=== PATIENT | female | born 1930 | race Caucasian/White ===

== ENCOUNTER 2018-04-18 03:46 | Observation (INO) | payer OTHER ==
[~2018-04-18] VITALS: Ht 170.2 cm; Wt 97.4 kg
[~2018-04-18 03:46] MED LIST: ASPIRIN325 PO; BENTYL 20 MG TA20 M1 PO; CEFTIN500 MG PO; CENTRUM SILVER1 EAC4 PO; CIPRO250 M1 PO; CIPRO500 M1 PO; CIPRO500 MG PO; CITRUCEL479 GM PO; COLESTIPOL HCL1 G1 PO; DILTIAZEM ER240 MG PO; FLAGYL500 MG PO; HYDROCODONE-AP1 EAC6 PO; LASIX 40 MG TAB40 M1 PO; LEVAQUIN 500 M500 MG PO; LEVAQUIN 750 M750 MG PO; LIDOPATCH1 EACH TOP; LISINOPRIL5 MG PO; MACROBID 100 M100 M1 PO; MAGNESIUM OXID400 MG PO; MIRALAX17 GM PO; MOBIC7.5 MG PO; NITROFURANTOIN100 MG PO; ONE-A-DAY WOMENS PO; PHENAZOPYRIDIN200 M2 PO; POTASSIUM GLUC500 MG PO; PREMARIN30 GM VAG; PYRIDIUM200 MG PO; Potassium Gluconate PO; SOTALOL120 MG PO; TRANSDERM-SCOP1 EACH TRANSDERM; VANCO1GM PO; VENTOLIN HFA 1818 GM INH; XANAX 0.5 MG0.5 MG PO
[2018-04-18 03:49] VITALS: BP 128/86
[2018-04-18 04:19] LABS: ABSOLUTE BASOPHILS 0.1 thou/uL (0.0-0.2); ABSOLUTE EOSINOPHILS 0.3 thou/uL (0.0-0.7); ABSOLUTE LYMPHOCYTES 2.2 thou/uL (0.8-5.3); ABSOLUTE NEUTROPHILS 14.2 thou/uL (1.6-8.1); BASOPHILS 0.3 %; EOSINOPHILS 1.9 %; HEMATOCRIT 50.6 % (37.0-47.0); HEMOGLOBIN 16.8 gm/dL (12.0-15.0); LYMPHOCYTES 12.6 %; MCH 32.2 pg (26.0-34.0); MCHC 33.2 g/dL (28.0-37.0); MONOCYTES 5.6 %; MPV 8.4 fl. (7.2-11.1); NUCLEATED RBCS 0 /100WBC; PLATELET COUNT* 238 thou/uL (150-400); POLYS 79.6 %; RBC 5.21 mil/uL (4.20-5.00); RDW-CV 13.1 % (10.5-14.5); WBC 17.8 thou/uL (4.0-11.0)
[2018-04-18 04:36] LABS: ANION GAP 11 mmol/L (7-16); BUN 30 mg/dL (7-18); CALCIUM 9.8 mg/dL (8.5-10.1); CHLORIDE 105 mmol/L (98-107); CO2 30 mmol/L (21-32); CREATININE 1.4 mg/dL (0.6-1.3); GLUCOSE 126 mg/dL (70-99); POTASSIUM 3.4 mmol/L (3.5-5.1); SODIUM 146 mmol/L (136-145)
[2018-04-18 04:43] LABS: ALBUMIN 3.4 g/dL (3.4-5.0); ALKALINE PHOSPHATASE 101 U/L (46-116); LIPASE 101 U/L (73-393); SGOT 15 U/L (15-37); SGPT 18 U/L (30-65); TOTAL BILIRUBIN 0.6 mg/dL (<0.1-1.0); TOTAL PROTEIN 7.3 g/dL (6.4-8.2); TROPONIN-I LEVEL <0.06 ng/mL (<0.06)
[2018-04-18 05:00] LABS: URINE BILIRUBIN NEGATIVE (Negative); URINE BLOOD TRACE (Negative); URINE CLARITY CLEAR; URINE COLOR YELLOW; URINE GLUCOSE-RANDOM NEGATIVE (Negative); URINE KETONES NEGATIVE (Negative); URINE LEUKOCYTES-REFLEX NEGATIVE (Negative); URINE NITRITE-REFLEX NEGATIVE (Negative); URINE PROTEIN NEGATIVE (Negative); URINE SPECIFIC GRAVITY 1.015 (1.005-1.030); URINE UROBILINOGEN 0.2 E.U./dl (0.2-1.0)
[2018-04-18 08:02] VITALS: BP 113/56
--- NOTE | 2018-04-18 15:28 | EKG ---
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: LUKE : 1930 Requested By: Melly Montiel Order Number: [id number] Reading MD: Hi Nicholson Measurements Intervals [address] Rate: 71 P: [place]: 210 QRS: 87 QRSD: 114 T: 25 QT: 488 QTc: 531 Interpretive Statements Atrial-paced rhythm Low voltage, precordial leads Prolonged QT interval Compared to ECG 02/12/2017 03:51:13 Low QRS voltage now present Prolonged QT interval now present Ventricular premature complex(es) no longer present Intraventricular conduction delay no longer present Electronically Signed On 04-18-2018 15:28:30 GASOLINE ATTENDANT by Hi Nicholson [email or web address] <ELECTRONICALLY SIGNED> By: Hi Nicholson MD, FACC 04/18/18 1528 0353 [id number] Hi Nicholson MD, FACC /EPI
[2018-04-18 16:04] VITALS: BP 129/72
[2018-04-18 19:40] VITALS: BP 132/63
[2018-04-18 22:49] LABS: AMP/METHAMP Negative (Negative); BARBITURATES Negative (Negative); BENZODIAZEPINES Negative (Negative); COCAINE Negative (Negative); METHADONE Negative (Negative); OPIATES Negative (Negative); PCP Negative (Negative); THC Negative (Negative)
[2018-04-19 04:01] LABS: HEMATOCRIT 44.5 % (37.0-47.0); MCH 31.9 pg (26.0-34.0); MCHC 32.6 g/dL (28.0-37.0); MPV 8.5 fl. (7.2-11.1); RBC 4.54 mil/uL (4.20-5.00); RDW-CV 13.7 % (10.5-14.5); WBC 9.3 thou/uL (4.0-11.0)
[2018-04-19 04:05] LABS: HEMOGLOBIN 14.5 gm/dL (12.0-15.0)
[2018-04-19 04:11] LABS: CALCIUM 8.4 mg/dL (8.5-10.1); CREATININE 1.2 mg/dL (0.6-1.3); POTASSIUM 3.7 mmol/L (3.5-5.1)
[2018-04-19 08:15] VITALS: BP 138/70
[2018-04-19 13:13] VITALS: BP 132/63
== END 2018-04-19 14:08 | disposition home or self-care (01) ==
LOC: M.ERS 03:46 → M.3W 05:51 → M.TBA-ER 05:51 → M.3W 05:51
PROVIDERS: Emergency Medicine; Family Medicine; ADMIT Internal Medicine
DX: A08.4 Viral intestinal infection, unspecified (principal); K57.30 Diverticulosis of large intestine without perforation or abscess without bleeding; K58.0 Irritable bowel syndrome with diarrhea; I11.0 Hypertensive heart disease with heart failure; I50.32 Chronic diastolic (congestive) heart failure; R53.1 Weakness; N20.0 Calculus of kidney; I48.0 Paroxysmal atrial fibrillation; Z95.0 Presence of cardiac pacemaker; Z98.890 Other specified postprocedural states; Z90.710 Acquired absence of both cervix and uterus; Z79.82 Long term (current) use of aspirin; Z79.899 Other long term (current) drug therapy

== ENCOUNTER 2019-02-20 10:57 | Inpatient (IN) | payer OTHER ==
[~2019-02-20] VITALS: Ht 162.6 cm; Wt 98.0 kg
[2019-02-20 11:03] VITALS: BP 119/58
[2019-02-20] MEDS ORDERED: CITRUCEL479 GM PO (11:08)
[2019-02-20] MEDS ORDERED: MOBIC7.5 MG PO (11:08)
[2019-02-20] MEDS ORDERED: TUMS PO (11:09)
[2019-02-20 12:07] LABS: BE 1.9 mmol/L (-2 to +3); HEMATOCRIT 41.6 % (37.0-47.0); MCH 31.5 pg (26.0-34.0); MCHC 33.7 g/dL (28.0-37.0); MCV 93.6 fL (80.0-100.0); MPV 7.9 fl. (7.2-11.1); NUCLEATED RBCS 0 /100WBC; PCO2 34.4 mmHg (35.0-45.0); PLATELET COUNT* 232 thou/uL (150-400); PO2 70.4 mmHg (75.0-100.0); RBC 4.45 mil/uL (4.20-5.00); RDW-CV 13.7 % (10.5-14.5); WBC 25.9 thou/uL (4.0-11.0); pH 7.478 (7.340-7.450)
[2019-02-20 12:14] LABS: CALCIUM 8.8 mg/dL (8.5-10.1); CREATININE 1.3 mg/dL (0.6-1.3)
[2019-02-20 12:16] LABS: POTASSIUM 2.7 mmol/L (3.5-5.1)
[2019-02-20 12:25] LABS: ABSOLUTE MONOCYTES 1.3 thou/uL (0.0-1.2); ABSOLUTE NEUTROPHILS 23.6 thou/uL (1.6-8.1); PLATELET ESTIMATE ADEQUATE
[2019-02-20 12:30] LABS: ALBUMIN 2.7 g/dL (3.4-5.0); MAGNESIUM 1.9 mg/dL (1.8-2.4); TOTAL BILIRUBIN 0.7 mg/dL (<0.1-1.0); TOTAL PROTEIN 6.4 g/dL (6.4-8.2)
[2019-02-20 12:48] LABS: APTT 25.5 Seconds (25.0-31.3); PROTIME 10.1 Seconds (9.20-11.50)
[2019-02-20 13:01] LABS: URINE BILIRUBIN NEGATIVE (Negative); URINE BLOOD 2+ (Negative); URINE CLARITY CLEAR; URINE COLOR YELLOW; URINE GLUCOSE-RANDOM NEGATIVE (Negative); URINE KETONES NEGATIVE (Negative); URINE LEUKOCYTES-REFLEX 2+ (Negative); URINE NITRITE-REFLEX NEGATIVE (Negative); URINE PROTEIN NEGATIVE (Negative); URINE UROBILINOGEN 0.2 E.U./dl (0.2-1.0)
[2019-02-20 13:06] LABS: SQUAMOUS 4-10 Moderate /LPF (0-3)
[2019-02-20 13:07] LABS: BACTERIA-REFLEX >30 Many /HPF (None Seen); CASTS None Seen /LPF (None Seen); CRYSTALS None Seen /LPF (None Seen); MUCUS None Seen strn/LPF (None Seen)
--- NOTE | 2019-02-20 15:02 | EKG ---
[place] [address] ELECTROCARDIOGRAM REPORT Name: NANCY SHER Room: [place] [address] ADM IN [facility].#: [id number] Admission: 02/20/19 Attend Phys: Chintan Rosa MD Discharge: Date of : [birth year] Report #: [id number] THIS REPORT FOR: //name// [facility] ED Test Date: 2019-02-20 Test Time: 12:02:17 Pat Name: NANCY SHER Department: Room: [facility] Gender: F Area Manager: CABRERA : 1930 Requested By: Carisa Cordoba Order Number: [id number] MD: Hi Nicholson Measurements Intervals [place] Rate: 70 P: [place]: 182 QRS: 88 QRSD: 125 T: 27 QT: 496 QTc: 536 Interpretive Statements Atrial-paced rhythm Nonspecific intraventricular conduction delay Borderline T abnormalities, anterior leads Compared to ECG 04/18/2018 03:53:12 Intraventricular conduction delay now present T-wave abnormality now present Prolonged QT interval no longer present Electronically Signed On 02-20-2019 15:02:23 CDT by Hi Nicholson [email or web address] <ELECTRONICALLY SIGNED> By: Hi Nicholson MD, FACC 02/20/19 1502 120 120 Hi Nicholson MD, FAC /EPI
--- NOTE | 2019-02-20 15:49 | NUR ---
REPORT CALLED TO DIONICIO ON
[2019-02-20 15:52] VITALS: BP 122/92
[2019-02-20 16:00] VITALS: BP 152/68
--- NOTE | 2019-02-20 17:14 | NUR ---
1600 PATIENT ADMITTED PER CART FROM ER TO 305. ABLE TO TRANSFER TO BED. SEE ADMISSION ASSESSMENT. EDUCATION COMPLETED.
--- NOTE | 2019-02-20 18:03 | NUR ---
PATIENT ADMITTED AT 1600 FOR UTI. SCREENS NEGATIVE FOR SEPSIS. URINE IS FOUL SMELLING. UP WITH ASSIST OF ONE. CONFUSION HAS RESOLVED. ONGOING POTASSIUM REPLACEMENT. FAMILY PRESENT.
[2019-02-20 19:19] LABS: CALCIUM 8.5 mg/dL (8.5-10.1); CREATININE 1.2 mg/dL (0.6-1.3)
[2019-02-20 19:20] LABS: POTASSIUM 2.9 mmol/L (3.5-5.1)
[2019-02-20 19:52] VITALS: BP 119/62
--- NOTE | 2019-02-21 04:25 | NUR ---
PATIENT SLEPT WELL DURING THIS SHIFT. PT UP SEVERAL TIMES TO VOID IN BSC. PT WITH ONE EPISODE OF INCONTINENCE OF BOWEL WHILE SLEEPING. PT REQUESTED BENTYL X1 AND WAS ABLE TO GO BACK TO SLEEP. PT WITH FLUIDS INFUSING IN RT AC BUT THE LINE INFILTRATED AND WAS HOOKED TO IV IN LT HAND UNTIL THAT IV INFILTRATED. NEW IV TO BE STARTED. FREQUENTLY USED ITEMS AND CALL LIGHT WITHIN REACH. SIDERAILS UPX2 AND BED ALARM ON WILL CONTINUE TO MONITOR.
[2019-02-21 05:13] LABS: HEMATOCRIT 41.2 % (37.0-47.0); HEMOGLOBIN 13.6 gm/dL (12.0-15.0); MCH 31.5 pg (26.0-34.0); MCHC 33.1 g/dL (28.0-37.0); MCV 95.1 fL (80.0-100.0); MPV 8.5 fl. (7.2-11.1); RBC 4.33 mil/uL (4.20-5.00); RDW-CV 13.7 % (10.5-14.5); WBC 15.3 thou/uL (4.0-11.0)
[2019-02-21 05:22] LABS: CALCIUM 8.3 mg/dL (8.5-10.1); CREATININE 0.9 mg/dL (0.6-1.3); MAGNESIUM 2.1 mg/dL (1.8-2.4)
[2019-02-21 05:23] LABS: POTASSIUM 4.7 mmol/L (3.5-5.1)
[2019-02-21 08:41] VITALS: BP 134/71
--- NOTE | 2019-02-21 10:58 | NUR ---
SW met with pt and pt dtr Marleny to complete initial assessment and discuss safe dc planning. Pt lives at home alone in [place] [address] in [place]. Pt has good family support in 4 children (3 children live in the area, and one dtr lives in [place].) Pt is DNR. Pt has RW. Pt has hx with [facility] and hx with [facility]. Pt recently changed to PCP Chichi Wayne MD. Pt plans to follow up with her after dc. Pt and pt dtr interested in HH services at dc; pt plans to work with therapy today. SW to continue to follow to assist with safe dc planning.
[2019-02-21 16:00] VITALS: BP 136/77
--- NOTE | 2019-02-21 16:20 | NUR ---
PT A&Ox4. VITALS STABLE. IV PATENT, PLACED BY INFUSION. TOLERATING DIET. DENIED PAIN. DENIED N/V. UP WITH 1 USING GAIT BELT AND WALKER. WORKED WITH THERAPY. NEEDS TO WALK TO BATHROOM INSTEAD OF CAMMODE. CALL LIGHT WITHIN REACH. WILL CONTINUE TO MONITOR.
[2019-02-21 19:40] VITALS: BP 120/58
--- NOTE | 2019-02-22 05:25 | NUR ---
PT ALERT AND ORIENTED. VSS ON RA. ASSESSMENT DOCUMENTED. PT SLEPT MOST OF SHIFT. CALLS OUT APPROPRIATELY TO USE BSC. LFA IV SL. CALL LIGHT WITHIN REACH. HOURLY ROUNDINGS MADE. WILL CONTINUE TO MONITOR.
[2019-02-22 08:00] VITALS: BP 172/96
--- NOTE | 2019-02-22 16:09 | NUR ---
PATIENT UP WITH ASSISTANCE. SITTING IN CHAIR ALL AFTERNOON. PT TO AMBULATE PATIENT THIS EVENING. IV SL, SCHED ABX GIVEN ORDERED. NO COMPLAINTS OF PAIN. AWAITING SENSITIVITIES FOR URINE CULTURE.
[2019-02-22 17:23] VITALS: BP 152/80
[2019-02-22 19:40] VITALS: BP 130/51
--- NOTE | 2019-02-23 04:57 | NUR ---
PT ALERT AND ORIENTED. VSS ON RA. ASSESSMENT AD DOCUMENTED. PT TO BATHROOM WITH WALKER FOR VOIDING. SENSITIVITY RESULT FOR UC NOTED. WILL INFORM HOSPITALIST. PT SLEPT MOST OF SHIFT. PT DENIES PAIN, N/V. FALL PRECAUTION IN PLACE. CALL LIGHT WITHIN REACH. HOURLY ROUNDINGS MADE. WILL CONTINUE TO MONITOR.
--- NOTE | 2019-02-23 06:22 | NUR ---
DR SALGADO NOTIFIED OF SENSITIVITY RESULT. PT ALREADY ON ROCEPHINE WHICH IS SUSCEPTIBLE. WILL LEAVE TO HOPSITALIST WHO WILL VISIT WITH PT THIS AM TO SWITCH TO PT PER DR SALGADO.
[2019-02-23 07:30] VITALS: BP 140/55
[2019-02-23] MEDS ORDERED: MACROBID 100 M100 M3 PO (10:02)
[2019-02-23 12:40] VITALS: BP 140/55
[2019-02-23 13:46] VITALS: BP 140/55
--- NOTE | 2019-02-23 13:48 | NUR ---
Pt to dc home alone today with dtr support and HH services to follow. Pt preference for [facility]. SW to fax referral and orders/med list to [facility]. Pt has RW at home. Pt dtr here to provide pt ride home.
--- NOTE | 2019-02-23 14:03 | NUR ---
PATIENT DISCHARGED TO HOME WITH DAUGHTER AND HOME HEALTH. IV DC'D. PATIENT UP WITH THERAPY AND AMBULATING WITH USE OF WALKER. PATIENT VERBALIZES UNDERSTANDING OF PAPERWORK AND SCRIPT. PATIENT TAKEN OUT VIA WHEELCHAIR WITH ALL BELONGINGS.
== END 2019-02-23 14:05 | disposition home health service (06) | DRG 871 ==
LOC: M.ERS 10:57 → M.3W 14:04 → M.TBA-ER 14:04 → M.3W 15:51
PROVIDERS: Personal Emergency Response Attendant; ADMIT Internal Medicine
DX: A41.9 Sepsis, unspecified organism (principal); G92 Toxic encephalopathy; N30.91 Cystitis, unspecified with hematuria; I10 Essential (primary) hypertension; M19.90 Unspecified osteoarthritis, unspecified site; Z96.641 Presence of right artificial hip joint; Z96.653 Presence of artificial knee joint, bilateral; I48.91 Unspecified atrial fibrillation; E87.6 Hypokalemia; R09.02 Hypoxemia; K57.30 Diverticulosis of large intestine without perforation or abscess without bleeding; K58.9 Irritable bowel syndrome, unspecified; F41.1 Generalized anxiety disorder; Z66 Do not resuscitate; Z95.0 Presence of cardiac pacemaker; Z87.442 Personal history of urinary calculi; Z90.49 Acquired absence of other specified parts of digestive tract; Z90.710 Acquired absence of both cervix and uterus; Z88.0 Allergy status to penicillin; Z88.2 Allergy status to sulfonamides; Z88.6 Allergy status to analgesic agent; Z91.041 Radiographic dye allergy status; Z80.0 Family history of malignant neoplasm of digestive organs; Z79.82 Long term (current) use of aspirin; Z79.899 Other long term (current) drug therapy; Z23 Encounter for immunization

== ENCOUNTER 2019-02-24 06:02 | Inpatient (IN) | payer OTHER ==
[~2019-02-24] VITALS: Ht 170.2 cm; Wt 98.3 kg
[2019-02-24] VITALS (7 sets, daily range): BP systolic 92–122; BP diastolic 28–66
[~2019-02-24 06:02] MED LIST changes: +MACROBID 100 M100 M3 PO; +TUMS PO
[2019-02-24 06:46] LABS: HEMATOCRIT 40.4 % (37.0-47.0); HEMOGLOBIN 13.6 gm/dL (12.0-15.0); MCH 31.8 pg (26.0-34.0); MCHC 33.5 g/dL (28.0-37.0); MCV 94.9 fL (80.0-100.0); NUCLEATED RBCS 0 /100WBC; PLATELET COUNT* 230 thou/uL (150-400); RBC 4.26 mil/uL (4.20-5.00); RDW-CV 13.4 % (10.5-14.5); WBC 22.9 thou/uL (4.0-11.0)
[2019-02-24 06:56] LABS: ANION GAP 9 mmol/L (7-16); BUN 23 mg/dL (7-18); CHLORIDE 104 mmol/L (98-107); CO2 25 mmol/L (21-32); CREATININE 1.3 mg/dL (0.6-1.3); GLUCOSE 133 mg/dL (70-99); POTASSIUM 3.4 mmol/L (3.5-5.1); SODIUM 138 mmol/L (136-145)
[2019-02-24 06:58] LABS: APTT 26.8 Seconds (25.0-31.3); PROTIME 10.2 Seconds (9.20-11.50)
[2019-02-24 07:07] LABS: ALBUMIN 2.6 g/dL (3.4-5.0); ALKALINE PHOSPHATASE 190 U/L (46-116); NT-PRO BRAIN NAT PEPTIDE 2173 pg/mL (<300); SGOT 177 U/L (15-37); SGPT 127 U/L (30-65); TOTAL BILIRUBIN 2.5 mg/dL (<0.1-1.0); TOTAL PROTEIN 6.5 g/dL (6.4-8.2); TROPONIN-I LEVEL <0.06 ng/mL (<0.06)
--- NOTE | 2019-02-24 07:45 | NUR ---
PT REPORTS SHE DOES NOT USE O2 AT HOME. ATTEMPTED TO TURN O2 OFF. ON ROOM AIR PT O2 DROPPED TO 89. O2 TURNED BACK ON AT 3L/NC.
[2019-02-24 07:46] LABS: URINE BILIRUBIN NEGATIVE (Negative); URINE BLOOD 1+ (Negative); URINE CLARITY CLEAR; URINE COLOR YELLOW; URINE GLUCOSE-RANDOM NEGATIVE (Negative); URINE KETONES NEGATIVE (Negative); URINE LEUKOCYTES-REFLEX TRACE (Negative); URINE NITRITE-REFLEX NEGATIVE (Negative); URINE PROTEIN TRACE (Negative); URINE UROBILINOGEN 0.2 E.U./dl (0.2-1.0)
[2019-02-24 07:55] LABS: ABSOLUTE BASOPHILS 0.2 thou/uL (0.0-0.2); ABSOLUTE LYMPHOCYTES 0.2 thou/uL (0.8-5.3); ABSOLUTE MONOCYTES 0.9 thou/uL (0.0-1.2); ABSOLUTE NEUTROPHILS 21.5 thou/uL (1.6-8.1); ANISOCYTOSIS 1+; PLATELET ESTIMATE ADEQUATE; POIKILOCYTOSIS 1+
[2019-02-24 07:57] LABS: AMORPHOUS URATES Few /LPF (None Seen); BACTERIA-REFLEX 1-9 Few /HPF (None Seen); CASTS None Seen /LPF (None Seen); MUCUS 4-6 Moderate strn/LPF (None Seen); SQUAMOUS 4-10 Moderate /LPF (0-3); URINE RBC 3-10 Few /HPF (0-2); URINE WBC-REFLEX 6-15 Few /HPF (0-5)
[2019-02-24 13:18] LABS: CALCIUM 8.4 mg/dL (8.5-10.1); CREATININE 1.1 mg/dL (0.6-1.3); MAGNESIUM 2.2 mg/dL (1.8-2.4); POTASSIUM 4.1 mmol/L (3.5-5.1)
--- NOTE | 2019-02-24 17:57 | NUR ---
RECIEVED REPORT APPROX 0845 FROM ED. PT UP TO UNIT APPROX 0900. ASSESSMENT COMPLETED CHARTED. MEDICATIONS COMPLETED CHARTED. PT UP TO RESTROOM WITH WALKER, GAIT BELT AND STAND BY ASSIST. PT HAD EPISODE OF INCONTINCE OF BOWEL ON THE WAY TO BATHROOM. THIS AFTERNOON PT USE BEDSIDE CAMODE, WITH ASSISTANCE. PT REQUIRES EXTRA TIME. PT CARE DISCUSSED WITH PT AND FAMILY, VERBALIZED UNDERSTANDING. SAFTEY PRECAUTIONS IN PLACE. CALL LIGHT WITHIN REACH. HOURLY ROUNDING FOR SAFTEY.
[2019-02-25 05:00] LABS: ALBUMIN 2.2 g/dL (3.4-5.0); CALCIUM 8.2 mg/dL (8.5-10.1); CREATININE 1.2 mg/dL (0.6-1.3); MAGNESIUM 1.9 mg/dL (1.8-2.4); POTASSIUM 3.2 mmol/L (3.5-5.1); TOTAL BILIRUBIN 2.1 mg/dL (<0.1-1.0)
--- NOTE | 2019-02-25 07:43 | NUR ---
PATIENT HAS SLEPT WELL THROUGHOUT THE NIGHT. VSS ON 2L 02 VIA NASAL CANNULA. PATIENT IS UP WITH ASSIST X 1 WITH GAITBELT AND WALKER TO THE BATHROOM. IV IN LEFT WRIST-SL. PATIENT INSTRUCTED TO USE CALL LIGHT WHEN NEEDING ASSISTANCE. HOURLY ROUNDS MADE. WILL CONTINUE WITH PLAN OF CARE AND NURSING TO MONITOR.
[2019-02-25 08:00] VITALS: BP 101/46
[2019-02-25 11:54] VITALS: BP 86/47
[2019-02-25 15:23] VITALS: BP 108/47
--- NOTE | 2019-02-25 16:53 | EKG ---
[place] [address] ELECTROCARDIOGRAM REPORT Name: NANCY SHER Room: [place] [address] ADM IN M.R.#: [id number] Admission: 02/24/19 Attend Phys: Diego Vora Discharge: Date of : [birth year] Report #: [id number] THIS REPORT FOR: //name// [facility] ED Test Date: 2019-02-24 Test Time: 06:39:35 Pat Name: NANCY SHER Department: Room: [facility] Gender: F Field Support Specialist: JESICA : 1930 Requested By: Mathew Torres Order Number: [id number] MD: Hi Nicholson Measurements Intervals [place] Rate: 70 P: [place]: 165 QRS: 88 QRSD: 120 T: 51 QT: 489 QTc: 528 Interpretive Statements Atrial-paced rhythm Minimal ST elevation, inferior leads Compared to ECG 02/20/2019 12:02:17 ST (T wave) deviation now present T-wave abnormality no longer present Electronically Signed On 02-25-2019 16:53:25 CDT by Hi Nicholson [email or web address] <ELECTRONICALLY SIGNED> By: Hi Nicholson MD, FACC 02/25/19 1653 0639 0639 Hi Nicholson MD, FAC /EPI
--- NOTE | 2019-02-25 18:56 | NUR ---
ASSUSSMED CARE OF PT APPROX 0730. REASSESSMENT COMPLETED CHARTED. MEDICATIONS GIVEN CHARTED. PTS IV WAS NOT FLUSHING THIS AM, IV REMOVED. IV ACCESS UNABLE TO BE OBTAINED BY NURSING STAFF. PHYSICAN AWARE. SAFTEY PRECAUTIONS IN PLACE. PT UP TO BEDSIDE CHAIR. PT CALLS OUT FOR NEEDS. PT WORKED WITH THERAPY THIS AFTERNOON. PT UP TO BATHROOM THIS EVENING AND THEN HELPED INTO BED. PERSONAL BELONGINGS AND CALL LIGHTS WITHIN REACH.
[2019-02-25 20:00] VITALS: BP 107/56
[2019-02-26 04:24] LABS: HEMATOCRIT 41.5 % (37.0-47.0); HEMOGLOBIN 13.7 gm/dL (12.0-15.0); MCH 31.2 pg (26.0-34.0); MCHC 33.1 g/dL (28.0-37.0); MCV 94.3 fL (80.0-100.0); MPV 8.5 fl. (7.2-11.1); RBC 4.4 mil/uL (4.20-5.00); RDW-CV 13.6 % (10.5-14.5); WBC 8.2 thou/uL (4.0-11.0)
[2019-02-26 04:38] LABS: CALCIUM 9.1 mg/dL (8.5-10.1); CREATININE 1.3 mg/dL (0.6-1.3); MAGNESIUM 2.1 mg/dL (1.8-2.4); POTASSIUM 4.2 mmol/L (3.5-5.1)
--- NOTE | 2019-02-26 04:44 | NUR ---
[facility] PATIENT CARE AT 1900. PATIENT ALERT AND ORIENTED TIMES FOUR. ABLE TO AMBULATE TO THE RESTROOM WITH STB AND HER WALKER. REQUESTED THAT SHE HAVE ATIVAN AND TUMS FOR BEDTIME. NO COMPLAINTS OF PAIN EXCEPT FOR HEARTBURN. RESERVATIONS AND TICKETING AGENT AND HOURLY ROUNDING COMPLETED CHARTED.
[2019-02-26 08:00] VITALS: BP 131/69
--- NOTE | 2019-02-26 13:38 | NUR ---
ASSUMED PT CARE AT 0730, FULL ASSESMENT DONE CHARTED. PT A/O X4, C/O BACK PAIN, UP TO CHAIR MOST OF THE MORNING. PT UP WITH ASSIST, USES CALL LIGHT APPROPRIATLY. PT HAS HAD SEVERAL LOOSE STOOLS THIS AM, NOT LIQUID. PT EATING APPROPRIATLY. VSS, M/S STATUS. WAITING ON DISCHARGE ORDERS. PT UPDATED ON PLAN OF CARE.
--- NOTE | 2019-02-26 14:22 | NUR ---
MET WITH PT AND SPOKE WITH DTR/CHRISTIANNE OVER THE PHONE RE: DC PLANS. PT WAS DC'D HOME ON FRI WITH [facility]. PER DTR, PT DID WELL ON FRI BUT FRI NIGHT WASN'T ABLE TO GET UP OOB AND WAS INCONTINENT. DTR FEELS PT NEEDS MORE THERAPY. DID EXPLAIN THAT PT HAS HAD THERAPY DAILY HERE. DTR WANTING TO AVOID SNF BUT UNDERSTOOD AFTER FURTHER DISCUSSION THAT IS THE RECOMMENDATION. DISCUSSED OPTIONS AND CHOSE [facility]. CALLED AND FAXED REFERRAL TO [facility]/SUNDAY. THEY WILL ACCEPT AND ARE WAITING ON INSURANCE AUTH
[2019-02-26] MEDS ORDERED: CYCLOBENZAPRINE5 MG PO (15:55)
[2019-02-26 16:00] VITALS: BP 101/54
--- NOTE | 2019-02-26 16:44 | 2DMMODE ---
[place] [address] 2 D/M-MODE ECHOCARDIOGRAM Name: NANCY SHER Room: [place] [address] ADM IN [facility]#: [id number] Admission: 02/24/19 Attend Phys: Diego baez Sa Discharge: Date of : [birth year] Date of Service: 02/26/19 1644 Report #: [id number] THIS REPORT FOR: //name// APPROVED REPORT Study performed: 02/26/2019 13:44:19 EXAM: Comprehensive 2D, Doppler, and color-flow Echocardiogram Patient Location: In-Patient Room #: [facility] Status: routine BSA: 2.08 HR: 100 bpm BP: 131/69 mmHg Rhythm: NSR Other Information Study Quality: Good Indications Dyspnea 2D Dimensions IVSd: 7.94 (7-11mm) LVOT Diam: 19.08 (18-24mm) LVDd: 47.70 mm PWd: 9.00 (7-11mm) Ascending Ao: 30.56 (22-36mm) LVDs: 35.39 (25-40mm) Aortic Root: 30.84 mm Volumes Left Atrial Volume (Systole) LA ESV Index: 22.60 mL/m2 Aortic Valve AoV Peak Alonso.: 1.58 m/s AO Peak Gr.: 9.98 mmHg LVOT Max P.67 mmHg AO Mean Gr.: 5.26 mmHg LVOT Mean P.76 mmHg LVOT Max V: 0.96 m/s AO V2 VTI: 23.99 cm LVOT Mean V: 0.61 m/s HARPREET (VTI): 1.95 cm2 LVOT V1 VTI: 16.35 cm Mitral Valve E/A Ratio: 1.31 MV Decel. Time: 162.46 ms MV E Max Alonso.: 1.10 m/[place] [address] 2 D/M-MODE [facility]OCARDIOGRAM [facility] Room: [address] IN .R.#: [id number] Admission: 02/24/19 Attend Phys: Diego baez Sa Discharge: Date of : [birth year] Date of Service: 02/26/19 1644 Report #: [id number] MV PHT: 47.11 ms MVA (PHT): 4.67 cm2 TDI E/Lateral E': 13.75 E/Medial E': 7.86 Medial E' Alonso.: 0.14 m/s Lateral E' Alonso.: 0.08 m/s Pulmonary Valve PV Peak Alonso.: 1.15 m/s PV Peak Gr.: 5.31 mmHg Tricuspid Valve RAP Estimate: 5.00 mmHg TR Peak Gr.: 40.29 mmHg RVSP: 45.00 mmHg PA Pressure: 45.00 mmHg Left Ventricle The left ventricle is normal size. There is normal LV segmental wall motion. There is normal left ventricular wall thickness. Left ventricular systolic function is normal. The left ventricular ejection fraction is within the normal range. LVEF is 60-65%. The left ventricular diastolic function is normal. Right Ventricle The right ventricle is normal size. The right ventricular systolic function is normal. Pacemaker lead is present in the right ventricle. Atria Left atrium is mildly dilated. Right atrium is mildly dilated. Aortic Valve Mild aortic valve sclerosis. Trace aortic regurgitation. There is no aortic valvular stenosis. Mitral Valve There is mitral annular calcification. Mild mitral regurgitation. No evidence of mitral valve stenosis. Tricuspid Valve The tricuspid valve is normal in structure. Mild tricuspid regurgitation. Mild pulmonary hypertension. Pulmonic Valve The pulmonary valve is normal in structure. [place] [address] 2 D/M-MODE ECHOCARDIOGRAM Name: NANCY SHER Room: [address] IN [facility]#: [id number] Admission: 02/24/19 Attend Phys: Diego baez Sa Discharge: Date of : [birth year] Date of Service: 02/26/19 1644 Report #: [id number] Great Vessels The aortic root is normal in size. IVC is normal in size and collapses >50% with inspiration. Pericardium There is no pericardial effusion. Left pleural effusion. <Conclusion> The left ventricle is normal size. There is normal left ventricular wall thickness. Left ventricular systolic function is normal. The left ventricular ejection fraction is within the normal range. LVEF is 60-65%. The left ventricular diastolic function is normal. The right ventricle is normal size. Left atrium is mildly dilated. Right atrium is mildly dilated. Mild aortic valve sclerosis. Trace aortic regurgitation. There is no aortic valvular stenosis. There is mitral annular calcification. Mild mitral regurgitation. No evidence of mitral valve stenosis. The tricuspid valve is normal in structure. Mild tricuspid regurgitation. Mild pulmonary hypertension. IVC is normal in size and collapses >50% with inspiration. There is no pericardial effusion. There is normal LV segmental wall motion. <ELECTRONICALLY SIGNED> By: Sanjay Schmidt MD, FACC 02/26/19 1644 1644 164 Sanjay Schmidt MD, FACC /INF
[2019-02-26 16:51] VITALS: BP 131/69
--- NOTE | 2019-02-26 18:51 | NUR ---
DISCHARGE ORDERS REVIEWED WITH PT AND HER DTR. REPORT CALLED TO [facility]. TRANSPORTED LEFT WITH PT AT APPROX 1800 WITH ALL BELONGINGS
== END 2019-02-26 18:02 | DRG 552 ==
LOC: M.ERS 06:02 → M.2W 08:00 → M.TBA-ER 08:00 → M.2W 09:00
PROVIDERS: Family Medicine; ADMIT Family Medicine
DX: M47.896 Other spondylosis, lumbar region (principal); E44.0 Moderate protein-calorie malnutrition; N20.0 Calculus of kidney; I48.91 Unspecified atrial fibrillation; K58.9 Irritable bowel syndrome, unspecified; F41.1 Generalized anxiety disorder; Z96.653 Presence of artificial knee joint, bilateral; Z96.641 Presence of right artificial hip joint; M47.892 Other spondylosis, cervical region; Z66 Do not resuscitate; K57.90 Diverticulosis of intestine, part unspecified, without perforation or abscess without bleeding; I27.20 Pulmonary hypertension, unspecified; M41.86 Other forms of scoliosis, lumbar region; Z88.0 Allergy status to penicillin; Z88.2 Allergy status to sulfonamides; Z88.8 Allergy status to other drugs, medicaments and biological substances; Z91.041 Radiographic dye allergy status; Z90.49 Acquired absence of other specified parts of digestive tract; Z90.710 Acquired absence of both cervix and uterus